=== PATIENT | female | born 1985 | race Hispanic/Latino ===

== ENCOUNTER 2017-05-24 10:54 | Emergency (ER) | payer MEDICAID ==
[2017-05-24 10:58] VITALS: BP 120/90; PULSE 108; TEMP 97; O2SAT 100
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
== END 2017-05-24 13:05 | disposition home or self-care (01) ==
LOC: EDBD → H.ER 10:54
DX: F41.9 Anxiety disorder, unspecified (principal)

== ENCOUNTER 2017-05-24 22:46 | Observation (INO) | payer MEDICAID ==
[2017-05-24 22:53] VITALS: TEMP 97.4
[2017-05-24] MEDS ORDERED: Sodium Chloride 0.9% 1,000 ML IV STA (23:02)
--- NOTE | 2017-05-24 23:04 | ED PDOC ---
HPI: General Adult Time Seen by Provider: 05/24/17 22:54 Chief Complaint (Nursing): GI Problem History Per: Patient Additional Complaint(s): Pt. states for the past 45 minutes she's had a sudden onset of dizziness lightheadedness. Reports that she was walking outside in the rain when symptoms began. Denies headache, fever, recent illness, chest pain, palpitations, abdominal pain, LOC, N/V. Past Medical History Reviewed: Historical Data, Nursing Documentation, Vital Signs Vital Signs: Last Vital Signs Temp 97.4 F L 05/24/17 22:51 Pulse 55 L 05/24/17 23:12 Resp 18 05/24/17 22:51 BP 103/61 05/24/17 22:51 Pulse Ox 100 05/24/17 23:12 - Surgical History Surgical History: No Surg Hx - Family History Family History: States: No Known Family Hx - Home Medications Home Medications: Ambulatory Orders Medication Instructions Recorded Meclizine [Meclizine*] 1 - 2 tab PO Q6 PRN #15 tab 05/25/17 - Allergies Allergies/Adverse Reactions: Allergies Allergy/AdvReac Type Severity Reaction Status Date / Time No Known Allergies Allergy Verified 05/24/17 22:53 Review of Systems ROS Statement: Except As Marked, All Systems Reviewed And Found Negative Neurological: Positive for: Dizziness Physical Exam - Reviewed Nursing Documentation Reviewed: Yes Vital Signs Reviewed: Yes - Physical Exam Appears: Positive for: Well, Non-toxic, No Acute Distress Head Exam: Positive for: ATRAUMATIC, NORMAL INSPECTION, NORMOCEPHALIC Skin: Positive for: Normal Color, Warm. Negative for: Rash Eye Exam: Positive for: EOMI, Normal appearance, PERRL ENT: Positive for: Normal ENT Inspection Neck: Positive for: Normal, Painless ROM Cardiovascular/Chest: Positive for: Regular Rate, Rhythm Respiratory: Positive for: CNT, Normal Breath Sounds Gastrointestinal/Abdominal: Positive for: Normal Exam, Bowel Sounds, Soft. Negative for: Tenderness Back: Positive for: Normal Inspection Extremity: Positive for: Normal ROM Neurologic/Psych: Positive for: Alert, Oriented, Gait (steady, unassisted), Other (equal ambulette driver strength b/l). Negative for: Aphasia, Facial Droop - Laboratory Results Result Diagrams: 05/24/17 23:59 05/24/17 23:59 - ECG ECG: Positive for: Interpreted By Me ECG Rhythm: Positive for: Sinus Bradycardia. Negative for: ST/T Changes Rate: 55 O2 Sat by Pulse Oximetry: 100 - Progress ED Course And Treament: Labs ordered. IV NS bolus x 1, CT head w/o contrast, EKG, antivert 25mg PO ordered. CT head w/o contrast: negative. On re-evaluation, pt. reports good relief of symptoms. Disposition - Clinical Impression Clinical Impression: Dizziness - Patient ED Disposition Is Patient to be Admitted: No - Disposition Disposition: Routine/Home Disposition Time: 02:36 Condition: STABLE Prescriptions: Meclizine [Meclizine*] 1 - 2 tab PO Q6 PRN #15 tab PRN Reason: Dizziness Instructions: Dizziness (ED) Forms: [facility] ([place]) Print Language: SCOTTISH
--- NOTE | 2017-05-25 00:16 | CT ---
EXAM: CT Head Without Intravenous Contrast CLINICAL HISTORY: 31 years old, female; Signs and symptoms; Dizziness TECHNIQUE: Axial computed tomography images of the head/brain without intravenous contrast. All CT scans at this facility use one or more dose reduction techniques, viz.: automated exposure control; ma/kV adjustment per patient size (including targeted exams where dose is matched to indication; i.e. head); or iterative reconstruction technique. Coronal and sagittal reformatted images were created and reviewed. COMPARISON: No relevant prior studies available. FINDINGS: Brain: No intracranial hemorrhage. No mass. No definite edema. Ventricles: No hydrocephalus. Bones/joints: No acute fracture. Soft tissues: Unremarkable. Sinuses: No acute sinusitis. Mastoid air cells: No mastoid effusion. Orbits: Unremarkable as visualized. IMPRESSION: 1. No acute intracranial abnormality.
[2017-05-25 00:18] LABS: ALB/GLOB RATIO 1.2 (1.0-2.1); ALCOHOL SERUM < 10 mg/dl (0-10); ALKALINE PHOSPHATASE 64 U/L (38-126); ALT/SGPT 137 U/L (9-52); AST/SGOT 109 U/L (14-36); BILIRUBIN,TOTAL 1.2 mg/dl (0.2-1.3); BLOOD UREA NITROGEN 28 mg/dl (7-17); CALCIUM 9.3 mg/dL (8.4-10.2); CARBON DIOXIDE 20 mmol/L (22-30); CHLORIDE 105 mmol/L (98-107); GFR AFRICAN-AMERICAN > 60; GLUCOSE,RANDOM 74 mg/dL (65-105); SODIUM 139 mmol/l (132-148); TOTAL PROTEIN 7.9 G/DL (6.3-8.2)
[2017-05-25 00:19] LABS: POTASSIUM 4.2 MMOL/L (3.6-5.0)
[2017-05-25 00:59] LABS: BASO # 0.1 K/uL (0.0-0.2); BASO % 1.1 % (0.0-2.0); EOS # 0.2 K/uL (0.0-0.7); EOS % 2.5 % (0.0-4.0); HEMATOCRIT 38.9 % (34.0-47.0); LYMPH # 2.4 K/uL (1.0-4.3); LYMPH % 27.2 % (20.0-40.0); MEAN CELL VOLUME 91.2 fl (81.0-99.0); MEAN CORPUSCULAR HEMOGLOBIN 30.4 pg (27.0-31.0); MEAN CORPUSCULAR HGB CONC 33.3 g/dL (33.0-37.0); MEAN PLATELET VOLUME 8.8 fl (7.2-11.7); MONO # 0.8 K/uL (0.0-0.8); MONO % 9.1 % (0.0-10.0); NEUT # 5.3 K/uL (1.8-7.0); NEUT % 60.1 % (50.0-75.0); NRBC % 0.1 % (0.0-0.0); RED CELL DISTRIBUTION WIDTH 13.9 % (11.5-14.5); WHITE BLOOD COUNT 8.8 K/uL (4.8-10.8)
[2017-05-25 05:58] VITALS: BP 110/65; PULSE 61; RESP 16; O2SAT 97
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
--- NOTE | 2017-05-25 09:47 | CARD ---
APPROVED REPORT EKG Measurement Heart [id number] <Conclusion> Sinus bradycardia with marked sinus arrhythmia Otherwise normal ECG
== END 2017-05-25 06:48 | disposition home or self-care (01) ==
LOC: H.ER 22:46 → H.EROBSV 05-25 06:14 → MERGE 05-25 06:14
PROVIDERS: ADMIT Emergency Medicine; ATTEND Emergency Medicine
DX: R42 Dizziness and giddiness (principal); Z59.0 Homelessness
CPT/HCPCS: 70450; 80053; 80320; 85025; 93005; 96360; 99282; G0378; J7040